=== PATIENT | female | born 1930 | race Caucasian/White ===

== ENCOUNTER 2016-12-03 21:04 | Inpatient (IN) | payer MEDICARE, BC ==
[~2016-12-03] VITALS: Ht 160 cm; Wt 72.6 kg
--- NOTE | ~2016-12-03 | CR145 ---
[facility] A Service of [facility] & [facility] RADIOLOGY TEXT RESULTS PATIENT: ALEJANDRO WRIGHT LOCATION: [place] [address]- : [birth year] UNIT #: [id number] AGE: [address]: Duncan Parra MD SEX: F ORDER DR: [id number] [facility] [address]. [place], [place] [address] [id number] I MR#: [id number] Acc #: [id number] NAME: ALEJANDRO WRIGHT : 1930 SEX: F STUDY DATE/TIME: 12/05/2016 20:50 UNIT: [facility] ROOM: [facility] STUDY DESCRIPTION: CR Hip 1 View Rt Attending Physician: Duncan Parra M.D. Ordering Physician: Vitaliy Marcial M.D. Primary Care Physician: Duncan Parra M.D. MEDICAL IMAGING REPORT This report is preliminary unless electronic signature is present EXAM Right hip, one-view. HISTORY Postop hip surgery. Pain and swelling today. FINDINGS AP view of the right hip demonstrates satisfactory hip alignment. Total hip arthroplasty components are in satisfactory position. No fracture. Small amount of postoperative soft tissue gas about the hip. Dictated by... Kyrie Peterson M.D. THIS IS AN ELECTRONICALLY VERIFIED REPORT Kyrie Peterson M.D. at 12/06/2016 4:32 PM SEELNA/daniel TD: 12/05/2016 22:06 JOB #: [id number] MEDICAL IMAGING REPORT Page 1 of 1 COPY
--- NOTE | ~2016-12-03 | EKG ---
PATIENT: ALEJANDRO WRIGHT UNIT #: [id number] Ventricular Rate: 87 BPM Atrial Rate: 87 BPM P-R Interval: 188 ms QRS Duration: 72 ms Q-T Interval: 376 ms QTC Calculation(Bezet): 452 ms P [place]: 70 degrees Calculated R [place]: 7 degrees Diagnosis Line: Sinus rhythm with Premature atrial complexes Diagnosis Line: Low voltage QRS Diagnosis Line: Cannot rule out Inferior infarct , age Diagnosis Line: undetermined Diagnosis Line: Cannot rule out Anterior infarct (cited on or Diagnosis Line: before 23-AUG-2011) Diagnosis Line: Abnormal ECG Diagnosis Line: When compared with ECG of 04-DEC-2016 09:06, Diagnosis Line: Premature atrial complexes are now Present Diagnosis Line: Confirmed by DARIAN SEGUNDO MD ([id number]) on 12/08/2016 Diagnosis Line: 8:33:28 AM INTERPRETING MD: SANYA MIDDLETON
--- NOTE | ~2016-12-03 | HP ---
Unit #: [id number] #: [id number] Patient: ALEJANDRO WRIGHT [id number] [address] [address] [id number] I MR#: [id number] NAME: ALEJANDRO WRIGHT ROOM: 47 Age: 86 Sex: F Admission Date: 12/04/2016 : 1930 Attending Physician: Duncan Parra M.D. Primary Care Physician: Duncan Parra M.D. HISTORY AND PHYSICAL HISTORY OF PRESENT ILLNESS This 86-year-old white female, with history of hypertension, osteoarthritis, hiatal hernia, GE reflux disorder, bilateral total hip replacements with prior dislocation on the right, was in her yard yesterday pulling weeds, had bent over without bending at the knees. She is unsure if her hip popped out or if she fell and her hip popped out, but she had right hip pain, was unable to ambulate, brought to the emergency room, found to have a right hip dislocation. ER physician was unable to reduce it, and she is admitted for orthopedic consultation. She has no other complaints on review of systems. ALLERGIES She has stated intolerances or allergies to NSAIDs, sulfa drugs, Librium, hydrocodone, Tylenol and Lasix. MEDS PRIOR TO ADMISSION 1. Norvasc 5 mg p.o. daily. 2. Aspirin 81 mg p.o. daily. 3. Multivitamin p.o. daily. 4. Vitamin D3 - 1,000 units p.o. daily. PAST MEDICAL HISTORY 1. Hypertension. 2. Peptic ulcer disease. 3. Hiatal hernia. 4. GE reflux disease. 5. Stress incontinence. 6. Osteoarthritis. SURGICAL HISTORY 1. Tonsillectomy. 2. Lumbar surgery. 3. Cervical surgery. 4. Breast lumpectomy for benign disease. 5. Right hip replacement. 6. Left hip replacement. 7. Cholecystectomy. SOCIAL HISTORY Nonsmoker, nondrinker, no illicit drug use. FAMILY HISTORY Family history is noncontributory. Unit #: [id number] #: [id number] Patient: ALEJANDRO WRIGHT PHYSICAL EXAMINATION GENERAL: She is awake, alert, oriented x3, in no acute distress. ADMISSION VITALS: Afebrile, pulse 88, respirations 19, blood pressure 115/74, O2 sat 100% on room air. HEENT: Unremarkable. NECK: Neck was supple without JVD, bruits, adenopathy or thyromegaly. CHEST: Clear to auscultation. CARDIOVASCULAR: Heart has a regular rate and rhythm without any murmurs, rubs or gallops. ABDOMEN: Abdomen was soft, nondistended, nontender with positive bowel sounds and no hepatosplenomegaly. EXTREMITIES: Extremities showed no clubbing, cyanosis or edema. Her right lower extremity is shortened and internally rotated. Distally neurovascularly intact. DIAGNOSTIC STUDIES LABORATORY VALUES: None. IMPRESSION 1. Right hip dislocation. 2. Status post bilateral total hip replacements. 3. Osteoarthritis. 4. Hypertension. 5. Hiatal hernia. 6. GE reflux disease. PLAN NPO. IV fluids. Pain medicine for pain control. Orthopedics have been consulted but have not yet arrived. Dictated by Saroj Grant/liliya TD: 12/04/2016 07:36 JOB #: [id number] HISTORY AND PHYSICAL Page 1 of 1 X Duncan Parra MD X HISTORY AND PHYSICAL
--- NOTE | ~2016-12-03 | EKG ---
PATIENT: ALEJANDRO WRIGHT UNIT #: [id number] Ventricular Rate: 81 BPM Atrial Rate: 81 BPM P-R Interval: 180 ms QRS Duration: 76 ms Q-T Interval: 416 ms QTC Calculation(Bezet): 483 ms P [place]: 31 degrees Calculated R [place]: 17 degrees Calculated T [place]: 29 degrees Diagnosis Line: Normal sinus rhythm Diagnosis Line: Low voltage QRS Diagnosis Line: Cannot rule out Anterior infarct (cited on or Diagnosis Line: before 23-AUG-2011) Diagnosis Line: Abnormal ECG Diagnosis Line: When compared with ECG of 03-JUL-2015 09:24, Diagnosis Line: Questionable change in initial forces of Anterior Diagnosis Line: leads Diagnosis Line: QT has lengthened Diagnosis Line: Confirmed by SANYA MIDDLETON, DARIAN ([id number]) on 12/05/2016 Diagnosis Line: 7:35:24 PM INTERPRETING MD: SANYA MIDDLETON
--- NOTE | ~2016-12-03 | CR145 ---
[facility] A Service of [facility] & [facility] RADIOLOGY TEXT RESULTS PATIENT: ALEJANDRO WRIGHT LOCATION: [facility]1-01 : 29 UNIT #: [id number] AGE: [address]: Duncan Parra MD SEX: F ORDER DR: [id number] [facility] [address] [facility] [place], [place] [address] [id number] I MR#: [id number] Acc #: [id number] NAME: ALEJANDRO WRIGHT : 1930 SEX: F STUDY DATE/TIME: 12/04/2016 0:16 UNIT: [facility] ROOM: [facility] STUDY DESCRIPTION: CR Hip 1 View Rt Attending Physician: Duncan Parra M.D. Ordering Physician: Yoni Morse M.D. Primary Care Physician: Duncan Parra M.D. MEDICAL IMAGING REPORT This report is preliminary unless electronic signature is present EXAM Single AP view of the right hip. Date: 12/04/2016 at 00:16. HISTORY Prosthetic right hip dislocation earlier tonight. Attempted reduction. Fell tonight. COMPARISON AP pelvis and cross-table lateral view of the right hip 12/03/2016 at 20:56. FINDINGS The right hip prosthesis remains dislocated. The femoral head component is superiorly displaced with respect to the prosthetic acetabulum. No periprosthetic fracture is seen. Dictated by... Matilde Felipe M.D. THIS IS AN ELECTRONICALLY VERIFIED REPORT Matilde Felipe M.D. at 12/04/2016 9:52 PM LLH/gz TD: 12/04/2016 10:50 JOB #: [id number] MEDICAL IMAGING REPORT Page 1 of 1 COPY
--- NOTE | ~2016-12-03 | OR ---
Unit #: [id number] #: [id number] Patient: ALEJANDRO WRIGHT [id number] [address] [place], [place] [address] [id number] I MR#: [id number] NAME: ALEJANDRO WRIGHT ROOM: 47 Date of Procedure: 12/05/2016 Admission Date: 12/04/2016 Surgeon: Vitaliy Marcial M.D. : 1930 Attending Physician: Duncan Parra M.D. Primary Care Physician: Duncan Parra M.D. OPERATIVE REPORT POSTOPERATIVE DIAGNOSIS Dislocated right total hip. POSTOPERATIVE DIAGNOSIS Dislocated right total hip. PROCEDURE PERFORMED Revision of cup, liner and head, right hip. ASSISTANTS Eloy Emery and Iain Butler. ANESTHESIA General. ESTIMATED BLOOD LOSS 200 mL. DESCRIPTION OF PROCEDURE The patient was brought to the operating room, given the general anesthetic. She will be given appropriate IV antibiotics preop. She was positioned in decubitus position. Right hip was prepped and draped in a sterile fashion. After this was done, the old skin incision was opened. The subcutaneous dissected away and a posterior approach carried out to the hip. Upon entering the hip, a large amount of blood was encountered. This was evacuated. We then removed the head from the stem. It was +1 head. The femur was retracted anteriorly. The femur was in neutral anteversion. After it was retracted anteriorly, the liner was removed from the cup with some difficulty. We then were able to extract cup from the pelvis with minimal bone loss. After this was done, the acetabulum was reamed progressively up to a 55. A 56 mm DePuy Multi-hole revision cup was inserted in 40 degrees of abduction and 20 degrees of forward flexion. Three screws were positioned through the cup securing it to the pelvis. We then used a +4, 10 degree hooded liner with buildup posteriorly and the hip was reduced once again with a +1, 36 head. The hip was stable in all directions. So, the real components were opened. The real liner was impacted into the cup. The real +1 head was opened and applied to the trunnion bearing and the hip was reduced. The wound was irrigated with Betadine and bacitracin. The ropivacaine mixture was injected without etodolac because of her allergies to NSAIDs. We then closed the wound, closing the capsule with 0 Vicryl. The fascia was closed with a running #1 Stratafix suture. The subcutaneous was closed Unit #: [id number] #: [id number] Patient: ALEJANDRO WRIGHT with 0 and 2-0 Vicryl and juliana in the skin. Sterile dressing was applied. Abduction pillow positioned and her general anesthetic was reversed. Dictated by... Saroj Lassiter/magnus TD: 12/06/2016 02:27 JOB #: [id number] OPERATIVE REPORT Page 1 of 1 X Vitaliy Marcial MD X PROCEDURE OPERATIVE NOTE
--- NOTE | ~2016-12-03 | DS ---
Unit #: [id number] #: [id number] Patient: ALEJANDRO WRIGHT [id number] [address] [address] [id number] I MR#: [id number] NAME: ALEJANDRO WRIGHT ROOM: 47 Age: 86 Sex: F Admission Date: 12/04/2016 : 1930 Discharge Date: Attending Physician: Duncan Parra M.D. Primary Care Physician: Duncan Parra M.D. DISCHARGE SUMMARY PRINCIPAL DISCHARGE DIAGNOSES 1. Dislocation of right hip prosthesis 2. Status post right hip revision 3. Probable neuropathic pain right lower extremity 4. Hypertension 5. Osteoporosis 6. Osteoarthritis 7. Hiatal hernia 8. Gastroesophageal reflux disease 9. Rhabdomyolysis 10. Acute kidney injury, resolved 11. Escherichia coli urinary tract infection 12. Postoperative anemia [employer] Vitaliy Marcial M.D. REASON FOR HOSPITALIZATION An 86-year-old white female with history of hypertension and osteoarthritis, hiatal hernia, gastroesophageal reflux disease, osteoporosis, bilateral total hip replacements for osteoarthritis admitted after a dislocation of her right hip, which apparently involved the acetabulum as well as the ball. The emergency room was unable to reduce it. The patient was admitted, preoped and underwent surgery with a right hip revision on 12/05/2016. The patient was discovered soon after admission to have rhabdomyolysis, started on IV fluids with sodium bicarbonate. Urine culture was sent for an abnormal urinalysis, grew Escherichia coli, placed on appropriate antibiotics. The patient underwent hip surgery, tolerated well, had what appeared to be some distal pain postoperative. X-rays of her right tibia-fibula were within normal limits. Suspected to be neuropathic. Just started on Neurontin on the day of discharge because of ongoing pain. Had trouble postoperative with constipation, treated and resolved yesterday. CPK levels down to 397, on warfarin for the past few days. Her PT/INR is 2.4, hemoglobin is stable at 10.3. DISCHARGE DISPOSITION Being discharged to [facility] Regular DISCHARGE MEDICATIONS 1. Zofran 4 mg every 4 hours p.r.n. for nausea or vomiting Unit #: [id number] #: [id number] Patient: ALEJANDRO WIRGHT 2. Micastatin powder twice daily topically to affected areas 3. Benadryl 25-50 mg p.o. every 6 hours p.r.n. for itching 4. Norvasc 5 mg p.o. daily 5. Bisacodyl 10 mg per rectum daily p.r.n. for constipation 6. Bisacodyl enteric-coated 5 mg p.o. b.i.d. p.r.n. for constipation 7. Senekot-S 1 p.o. b.i.d. 8. Milk of Magnesia 30 mL every 4 p.r.n. for constipation n 9. Aspirin 81 mg daily 10. Roxicodone 10 mg p.o. every 4 hours p.r.n. for pain, #180 with no refills 11. Macrobid 100 mg p.o. b.i.d. 12. Vitamin D 1000 units daily 13. Neurontin just started today 300 mg p.o. b.i.d. for suspected radicular pain in the right lower extremity 14. She is currently on Coumadin 5 mg daily and will need daily protime 15. Dictated by... Saroj Grant/taz TD: 12/09/2016 12:07 JOB #: [id number] DISCHARGE SUMMARY Page 1 of 1 X Duncan Parra MD X DISCHARGE SUMMARY
--- NOTE | ~2016-12-03 | CO ---
Unit #: [id number] #: [id number] Patient: ALEJANDRO WRIGHT [id number] [address] [address] [id number] I MR#: [id number] NAME: ALEJANDRO WRIGHT ROOM: 47 Age: 86 Sex: F Admission Date: 12/04/2016 : 1930 Attending Physician: Duncan Parra M.D. Primary Care Physician: Duncan Parra M.D. Consultation Date: 12/04/2016 CONSULTATION REPORT REASON FOR CONSULTATION Right hip dislocation. HISTORY OF PRESENT ILLNESS The patient is a pleasant 86-year-old white female who we were asked to see in consultation by Dr. Parra for right total hip dislocation. The patient's hip was originally done by Dr. Gaffney and then revised by Dr. Gaffney. The patient reports yesterday evening she was out getting her garbage can and then she bent over to pick a weed when she dislocated her right hip. Since then, she has had pain in her right hip. The patient reports her pain is a 10 on a scale of 1 to 10. She also reports her right leg is shorter than her left. She denies any numbness, tingling, fever or chills. PAST MEDICAL HISTORY 1. Hypertension. 2. Osteoarthritis. 3. Hiatal hernia. 4. Reflux. 5. Right total hip replacement with history of revisions. 6. Stress incontinence. SURGICAL HISTORY 1. Tonsillectomy. 2. Lumbar surgery. 3. Cervical surgery. 4. Breast lumpectomy for benign disease. 5. Right total hip replacement. 6. Left total hip replacement. 7. Cholecystectomy. ALLERGIES The patient has allergy to NSAIDs, sulfa drugs, Librium, hydrocodone, Tylenol and Lasix. HOME MEDICATIONS 1. Norvasc 5 mg daily. 2. Aspirin 81 mg daily. 3. Multivitamin daily. 4. Vitamin D 1000 units a day. SOCIAL HISTORY The patient is a nonsmoker, nondrinker. No illicit drugs. Unit #: [id number] #: [id number] Patient: ALEJANDRO WRIGHT FAMILY HISTORY Noncontributory. PHYSICAL EXAMINATION GENERAL: She is well developed, well nourished in no acute distress. VITAL SIGNS: Her temperature is 98.3, blood pressure 115/74, heart rate 88 and regular, respirations 18. HEENT: Normocephalic, atraumatic. PERRLA. Extraocular movements intact. Conjunctivae clear. NECK: Supple. No thyromegaly. LUNGS: Clear to auscultation. No accessory muscle use. Equal expansion bilaterally. ABDOMEN: Soft, nontender, nondistended. Positive bowel sounds. MUSCULOSKELETAL: Gait deferred. Range of motion deferred because of known right total hip dislocation. Right lower extremity is shorter than the left and internally rotated. She did have some tenderness to palpation lateral to her right hip. Her skin was warm and dry and intact. There were no open wounds around her hip. She has a well-healed incision. EXTREMITIES: No clubbing, cyanosis, edema. SKIN: No rashes, lesions or ulcers. NEUROLOGICAL/LIMITED ORTHOPEDIC EXAM: Was able to move all four extremities. Admittedly, her right hip was painful. DIAGNOSTIC STUDIES LABORATORY: None. IMAGING: X-ray reviewed of her right hip. Does show she has a right hip dislocation with a constrained liner. IMPRESSION 1. Right total hip dislocation. 2. History of bilateral total hip replacement. 3. Osteoarthritis. 4. Hypertension. 5. Hiatal hernia. 6. Reflux. PLAN We will plan on revision of her right total hip replacement. I have explained the risks and expected outcomes of risk to include blood clot, infection, neurovascular deficit, leg discrepancy and even . The patient completely understands and wishes to proceed. I will give the patient a regular diet today and will plan on surgical intervention tomorrow. The patient will be NPO after midnight. Dictated by... Eloy Emery P.A.-C- for Saroj Lassiter/hesham TD: 12/04/2016 09:07 JOB #: [id number] Unit #: [id number] #: [id number] Patient: ALEJANDRO WRIGHT CONSULTATION REPORT Page 1 of 1 X X CONSULTATION REPORT
--- NOTE | ~2016-12-03 | CR72 ---
[facility] A Service of [facility] & [facility] RADIOLOGY TEXT RESULTS PATIENT: ALEJANDRO WRIGHT LOCATION: [facility] 471-01 : 29 UNIT #: [id number] AGE: [address]: Duncan Parra MD SEX: F ORDER DR: [id number] [facility] [address] [place], [place] [address] [id number] I MR#: [id number] Acc #: [id number] NAME: ALEJANDRO WRIGHT : 1930 SEX: F STUDY DATE/TIME: 12/04/2016 09:57 UNIT: [facility] ROOM: [facility] STUDY DESCRIPTION: CR Chest Single View Portable Attending Physician: Duncan Parra M.D. Ordering Physician: Vitaliy Marcial M.D. Primary Care Physician: Duncan Parra M.D. MEDICAL IMAGING REPORT This report is preliminary unless electronic signature is present EXAM Chest portable 12/04/2016 0957 hours HISTORY Shortness of air today. COMPARISON 11/13/2014 FINDINGS Portable upright chest demonstrates moderately enlarged cardiac silhouette appearing increased from 11/13/2014. Patient has a known large hiatal hernia which also appears increased. There is a stable tortuous aorta. Lungs are clear and there are no effusions. IMPRESSION Moderately enlarged cardiac silhouette increased from 11/13/2014. Patient has a known large hiatal hernia which is also increased in size. The lungs are clear of acute densities. Stable calcified granulomata. No effusion or pneumothorax. Dictated by... Erlinda Hickey M.D. THIS IS AN ELECTRONICALLY VERIFIED REPORT Erlinda Hickey M.D. at 12/04/2016 2:31 PM ALEX/amberr TD: 12/04/2016 14:13 JOB #: [id number] MEDICAL IMAGING REPORT Page 1 of 1 COPY
--- NOTE | ~2016-12-03 | CR151 ---
[facility] A Service of [facility] & [facility] RADIOLOGY TEXT RESULTS PATIENT: ALEJANDRO WRIGHT LOCATION: [place] [address]- : 29 UNIT #: [id number] AGE: [address]: Duncan Parra MD SEX: F ORDER DR: [id number] [facility] [address] [facility] [place], [place] [address] [id number] I MR#: [id number] Acc #: [id number] NAME: ALEJANDRO WRIGHT : 1930 SEX: F STUDY DATE/TIME: 12/03/2016 21:56 UNIT: [facility] ROOM: [facility] STUDY DESCRIPTION: CR Hip Min 2 Views Rt Attending Physician: Duncan Parra M.D. Ordering Physician: Yoni Morse M.D. Primary Care Physician: Duncan Parra M.D. MEDICAL IMAGING REPORT This report is preliminary unless electronic signature is present EXAM AP pelvis and cross-table lateral view of the right hip (2 images). Date: 12/03/2016. HISTORY Dislocated right hip with pain after falling today. Previous right hip replacement with the last Revision 4 years ago. COMPARISON None. FINDINGS Total bilateral hip replacement changes are present. The right hip femoral head prosthesis is dislocated superiorly with respect to the prosthetic acetabulum. A ring component of the acetabular prosthesis appears displaced, as well. No periprosthetic fractures identified. Left hip prosthesis appears appropriately seated. There are degenerative changes of the bilateral sacroiliac joints with marginal sclerosis. There is lumbar curvature toward the left, multilevel marginal osteophyte formation and disc space narrowing is present in the imaged lower lumbar spine. IMPRESSION 1. Dislocation of right hip prosthesis superiorly. Additionally, a ring component of the acetabular prosthesis appears dislodged, as well. 2. No periprosthetic fracture is identified. Dictated by... Matilde Felipe M.D. THIS IS AN ELECTRONICALLY VERIFIED REPORT Matilde Felipe M.D. at 12/04/2016 9:53 PM [facility] A Service of [facility] & [facility] RADIOLOGY TEXT RESULTS PATIENT: ALEJANDRO WRIGHT LOCATION: [facility] 471-01 : 29 UNIT #: [id number] AGE: [address]: Duncan Parra MD SEX: F ORDER DR: Omar TD: 12/04/2016 10:42 JOB #: [id number] MEDICAL IMAGING REPORT Page 1 of 1 COPY
--- NOTE | ~2016-12-03 | CR253 ---
[facility] A Service of [facility] RADIOLOGY TEXT RESULTS PATIENT: ALEJANDRO WRIGHT LOCATION: [facility] : 29 UNIT #: [id number] AGE: [address]: Duncan Parra MD SEX: F ORDER DR: [id number] [place] [address] [place], [place] [address] [id number] I MR#: [id number] Acc #: [id number] NAME: ALEJANDRO WRIGHT : 1930 SEX: F STUDY DATE/TIME: 12/07/2016 11:18 UNIT: [facility] ROOM: [facility] STUDY DESCRIPTION: CR Tibia and Fibula 2 Views Rt Attending Physician: Duncan Parra M.D. Ordering Physician: Duncan Parra M.D. Primary Care Physician: Duncan Parra M.D. MEDICAL IMAGING REPORT This report is preliminary unless electronic signature is present EXAM Tib-fib on the right, 2 views, 12/07/2016. INDICATION Pain in the right tib-fib laceration distally. Symptoms 3 days after a fall. TECHNIQUE Two views of the right tib-fib. COMPARISON No comparisons. FINDINGS The bones are osteoporotic. No acute fracture. Atherosclerotic calcifications present. IMPRESSION Osteoporosis. No acute fracture. Atherosclerotic disease. Dictated by... Vladimir Squires M.D. THIS IS AN ELECTRONICALLY VERIFIED REPORT Vladimir Squires M.D. at 12/07/2016 5:17 PM COLUMBA/denice TD: 12/07/2016 15:27 JOB #: [id number] MEDICAL IMAGING REPORT [facility] A Service of [facility] RADIOLOGY TEXT RESULTS PATIENT: ALEJANDRO WRIGHT LOCATION: [facility] : 29 UNIT #: [id number] AGE: [address]: Duncan Parra MD SEX: F ORDER DR: Page 1 of 1 COPY
[~2016-12-03 21:04] MED LIST: FAMOTIDINE PO; OMEPRAZOLE40 MG PO; ZOFRAN PO
[2016-12-04] MEDS ORDERED: NORVASC PO (01:03)
[2016-12-04] MEDS ORDERED: ASPIRIN81 MG PO (01:07)
[2016-12-04] MEDS ORDERED: MULTI VITAMIN1 EACH PO (01:08)
[2016-12-04] MEDS ORDERED: VIT D 3 PO (01:11)
[2016-12-04 09:19] LABS: HEMATOCRIT 37.3 % (35.0-45.0); HEMOGLOBIN 12.4 gm/dL (12.0-16.0); MEAN CELL VOLUME 83.6 FL (83-96); MEAN CORPUSCULAR HEMOGLOBIN 27.8 PG (28-34); MEAN CORPUSCULAR HGB CONC 33.2 g/dL (30-36); RED BLOOD COUNT 4.46 X10e (3.90-5.30); RED CELL DISTRIBUTION WIDTH 14.7 % (11.0-15.5); WHITE BLOOD COUNT 10.6 X10e3 (4.0-10.5)
[2016-12-04 09:33] LABS: PROTHROMBIN TIME (PATIENT) 10.9 SECONDS (10.0-11.7)
[2016-12-04 10:19] LABS: ALBUMIN SERUM 3.6 g/dL (3.5-5.0); BILIRUBIN,TOTAL 0.6 mg/dL (0.2-2.0); BUN/CREATININE RATIO 16.25; CALCIUM SERUM 8.9 mg/dL (8.4-10.2); CREATININE SERUM 0.8 mg/dL (0.6-1.4); GLOM FILT RATE Estimated 66.3 mL/min (>60); POTASSIUM 3.9 mmol/L (3.5-5.1); PROTEIN TOTAL SERUM 6.5 g/dL (6.0-8.3)
[2016-12-05 10:10] LABS: URINE APPEARANCE CLOUDY; URINE BILIRUBIN NEG (NEG); URINE BLOOD 1+ (NEG); URINE COLOR YELLOW; URINE GLUCOSE NEG (NEG); URINE KETONE NEG (NEG); URINE LEUKOCYTE ESTERASE 3+ (NEG); URINE NITRATE POS (NEG); URINE PROTEIN 1+ (NEG); URINE SPECIFIC GRAVITY 1.019 (1.003-1.035); URINE UROBILINOGEN 0.2 MG/DL (NEG)
[2016-12-05 10:13] LABS: CULTURE INDICATED? YES; URINE BACTERIA AUWI 4+ (NEGATIVE); URINE SQUAMOUS EPITHELIAL CELL NONE SEEN /[HPF]; UWBCS1 AUWI INNUM (0-5)
[2016-12-05 10:20] LABS: URINE SOURCE CLEAN CATCH
[2016-12-06 04:24] LABS: BUN/CREATININE RATIO 13.33; CALCIUM SERUM 8.2 mg/dL (8.4-10.2); CREATININE SERUM 0.9 mg/dL (0.6-1.4); GLOM FILT RATE Estimated 57.5 mL/min (>60); POTASSIUM 4.3 mmol/L (3.5-5.1)
[2016-12-06 05:44] LABS: PROTHROMBIN TIME (PATIENT) 11.3 SECONDS (10.0-11.7)
[2016-12-07 04:11] LABS: BASOPHIL% 0.1 % (0-2.5); HEMATOCRIT 31.1 % (35.0-45.0); HEMOGLOBIN 10.5 gm/dL (12.0-16.0); LYMPHOCYTE# 1.5 X10e3 (1.0-3.5); LYMPHOCYTE% 10.7 % (17.0-45.0); MEAN CELL VOLUME 82.5 FL (83-96); MEAN CORPUSCULAR HEMOGLOBIN 27.8 PG (28-34); MEAN CORPUSCULAR HGB CONC 33.7 g/dL (30-36); MEAN PLATELET VOLUME 7.7 FL (6.5-11.5); MONOCYTE# 0.9 X10e3 (0-1.0); MONOCYTE% 6.6 % (3.0-12.0); NEUTROPHIL# 11.5 X10e3 (1.5-7.1); NEUTROPHIL% 82.6 % (40-75); PLATELET COUNT 232 X10e3 (140-420); RED BLOOD COUNT 3.77 X10e (3.90-5.30); RED CELL DISTRIBUTION WIDTH 14.4 % (11.0-15.5); WHITE BLOOD COUNT 13.9 X10e3 (4.0-10.5)
[2016-12-07 04:20] LABS: DIFF IND NO
[2016-12-07 04:21] LABS: INR 1.5; PROTHROMBIN TIME (PATIENT) 16.1 SECONDS (10.0-11.7)
[2016-12-07 04:33] LABS: CALCIUM SERUM 8.1 mg/dL (8.4-10.2); CREATININE SERUM 0.4 mg/dL (0.6-1.4); GLOM FILT RATE Estimated 93.7 mL/min (>60); MAGNESIUM 1.9 mg/dL (1.6-3.0); POTASSIUM 3.6 mmol/L (3.5-5.1)
[2016-12-08 03:53] LABS: PROTHROMBIN TIME (PATIENT) 22.2 SECONDS (10.0-11.7)
[2016-12-08 03:54] LABS: HEMATOCRIT 30.1 % (35.0-45.0); HEMOGLOBIN 10.1 gm/dL (12.0-16.0); MEAN CELL VOLUME 82.7 FL (83-96); MEAN CORPUSCULAR HEMOGLOBIN 27.6 PG (28-34); MEAN CORPUSCULAR HGB CONC 33.4 g/dL (30-36); MEAN PLATELET VOLUME 7.6 FL (6.5-11.5); RED BLOOD COUNT 3.64 X10e (3.90-5.30); RED CELL DISTRIBUTION WIDTH 14.2 % (11.0-15.5); WHITE BLOOD COUNT 9.2 X10e3 (4.0-10.5)
[2016-12-08 04:05] LABS: BUN/CREATININE RATIO 18.57; CALCIUM SERUM 7.9 mg/dL (8.4-10.2); CREATININE SERUM 0.7 mg/dL (0.6-1.4); GLOM FILT RATE Estimated 77.9 mL/min (>60); MAGNESIUM 1.8 mg/dL (1.6-3.0); POTASSIUM 3.9 mmol/L (3.5-5.1)
[2016-12-09 02:39] LABS: HEMOGLOBIN 10.3 gm/dL (12.0-16.0); MEAN CELL VOLUME 83.7 FL (83-96); MEAN CORPUSCULAR HEMOGLOBIN 27.8 PG (28-34); MEAN CORPUSCULAR HGB CONC 33.2 g/dL (30-36); MEAN PLATELET VOLUME 7.4 FL (6.5-11.5); RED BLOOD COUNT 3.71 X10e (3.90-5.30); RED CELL DISTRIBUTION WIDTH 14.4 % (11.0-15.5); WHITE BLOOD COUNT 7.6 X10e3 (4.0-10.5)
[2016-12-09 02:53] LABS: INR 2.4; PROTHROMBIN TIME (PATIENT) 26.4 SECONDS (10.0-11.7)
[2016-12-09 03:12] LABS: BUN/CREATININE RATIO 13.75; CALCIUM SERUM 8.2 mg/dL (8.4-10.2); CREATININE SERUM 0.8 mg/dL (0.6-1.4); GLOM FILT RATE Estimated 66.3 mL/min (>60); POTASSIUM 3.7 mmol/L (3.5-5.1)
[2016-12-10 03:39] LABS: INR 2.5; PROTHROMBIN TIME (PATIENT) 26.9 SECONDS (10.0-11.7)
== END 2016-12-10 16:55 | DRG 467 ==
LOC: CED 21:04 → CEDOF 23:50 → CED 23:50 → C4C 12-04 00:01 → CED 12-04 00:01 → CEDOF 12-04 00:01 → C4C 12-04 02:10 → CEDOF 12-04 13:20 → C4C 12-10 16:55
PROVIDERS: Internal Medicine; Orthopaedic Surgery
PROC: 0SP909Z Removal of Liner from Right Hip Joint, Open Approach (ICD-10-PCS; 2016-12-05)
PROC: 0SUA09Z Supplement Right Hip Joint, Acetabular Surface with Liner, Open Approach (ICD-10-PCS; 2016-12-05)
PROC: 0SP90JZ Removal of Synthetic Substitute from Right Hip Joint, Open Approach (ICD-10-PCS; 2016-12-05)
PROC: 0SR902Z Replacement of Right Hip Joint with Metal on Polyethylene Synthetic Substitute, Open Approach (ICD-10-PCS; principal; 2016-12-05 14:30)
PROC: 05H533Z Insertion of Infusion Device into Right Subclavian Vein, Percutaneous Approach (ICD-10-PCS; 2016-12-08)
PROC: B546ZZA Ultrasonography of Right Subclavian Vein, Guidance (ICD-10-PCS; 2016-12-08)
DX: T84.020A Dislocation of internal right hip prosthesis, initial encounter (principal); M62.82 Rhabdomyolysis; N17.9 Acute kidney failure, unspecified; Z96.643 Presence of artificial hip joint, bilateral; N39.0 Urinary tract infection, site not specified; Y79.2 Prosthetic and other implants, materials and accessory orthopedic devices associated with adverse incidents; Z90.49 Acquired absence of other specified parts of digestive tract; Z88.2 Allergy status to sulfonamides; Z79.82 Long term (current) use of aspirin; I10 Essential (primary) hypertension; K44.9 Diaphragmatic hernia without obstruction or gangrene; K21.9 Gastro-esophageal reflux disease without esophagitis; Z87.11 Personal history of peptic ulcer disease; M19.90 Unspecified osteoarthritis, unspecified site; B96.20 Unspecified Escherichia coli [E. coli] as the cause of diseases classified elsewhere; M81.0 Age-related osteoporosis without current pathological fracture; N39.3 Stress incontinence (female) (male); D64.89 Other specified anemias; K59.00 Constipation, unspecified
CPT/HCPCS: 36415; 71010; 73501; 73502; 73590; 80048; 80053; 81003; 82550; 83735; 85025; 85027; 85610; 87070; 87075; 87086; 87088; 87186; 87205; 93005; 94760; 96374; 97110; 97116; 97161; 97167; 97530; 97535; 99285; C1713; C1776; G8978-GP; G8979-GP; G8980-GP; G8987-GO; G8988-GO; J0171; J0690; J0696; J0735; J1100; J1170; J1650; J2270; J2370; J2405; J2765; J2795; J3010